=== PATIENT | female | born 1985 | race Caucasian/White ===

== ENCOUNTER 2020-03-16 13:37 | Emergency (ER) | payer BC, SELFPAY ==
[2020-03-16 14:05] VITALS: BP 136/76; PULSE 69; RESP 20; TEMP 36.4; O2SAT 100; BMI 22.1
--- NOTE | 2020-03-16 14:27 | HMH.EDUTC ---
[facility] Disposition Clinical Impression: Exposure to COVID-19 virus Disposition: Home, Self-Care Condition on Discharge: Good Instructions: Preventing the Spread of Coronavirus Discharge Instructions Additional Instructions: Drink plenty of fluids. Take tylenol for pain or fever. Return if you begin to have difficulty breathing. Follow up with your regular doctor. GO TO THE ER FOR ANY WORSENING SYMPTOMS Referrals: PCP,No [Primary Care Provider] - Time of Disposition: 14:28 Medical Decision Making - Medical Records Medical records reviewed: No: I reviewed the patient's medical records. - Steve Inquiry Pt receiving controlled substance: No Vital Signs: 03/16/20 14:19 Temperature 97.5 F L Temperature Source Temporal Artery Scan Pulse Rate [Right Brachial] 69 Respiratory Rate 20 Blood Pressure [Right Arm] 136/76 Blood Pressure Mean [Right Arm] 96 Blood Pressure Source [Right Arm] Automatic Cuff Blood Pressure Position [Right Arm] Sitting 02 Sat by Pulse Oximetry 100 Oxygen Delivery Method Room Air [facility] HPI - General Stated complaint: cough,weak covid exposure Time Seen by Provider: 03/16/20 14:27 Mode of Arrival: Ambulatory Source of Information: Patient Limitations: No Limitations Description of Symptoms (Recalled from Triage Doc. by RN): PATIENT REQUESTING COVID TEST D/T EXPOSURE HEENT Symptoms (Recalled from RN notes): No Resp Symptoms (Recalled from RN notes): No Skin Symptoms (Recalled from RN notes): No MS Symptoms (Recalled from RN notes): No Functional Status (Recalled from RN notes): WNL - History of Present Illness Provider Complaint: She denies any symptoms - Related Data Allergies Allergy/AdvReac Type Severity Reaction Status Date / Time amoxicillin [From Augmentin] Allergy Verified 03/16/20 14:22 clavulanic acid Allergy Verified 03/16/20 14:22 [From Augmentin] - Worker's Comp Is this a Worker's Comp case?: No [facility] History - Hepatitis A Screen Drug use history?: No High risk sexual behaviors?: No History of sexually transmitted infection?: No Currently employed?: No Childcare worker?: No Do you have indoor plumbing?: Yes Do you have electricity?: Yes Attestation statement:: This patient has been screened for Hepatitis A risk factors. I have reviewed the patient's past medical history: Yes - Social History Alcohol Intake: never Occupational Status: other ROS Obtained: Yes All systems reviewed & no additional complaints - Constitutional Constitutional: Reports system reviewed and no additional complaints, except as docu - Eyes Eyes: Reports system reviewed and no additional complaints, except as docu - ENT Ears, Nose, Mouth, and Throat: Reports system reviewed and no additional complaints, except as docu - Cardiovascular Cardiovascular: Reports system reviewed and no additional complaints, except as docu - Respiratory Respiratory: Yes system reviewed and no additional complaints, except as docu - Gastrointestinal Gastrointestingal: Reports: system reviewed and no additional complaints, except as docu Physical Exam - General General appearance: alert, in no apparent distress - Head Head exam: atraumatic, normocephalic, normal inspection - Eye Eye exam: Present: normal appearance, PERRL, EOMI - ENT ENT exam: Present: normal exam, normal oropharynx, mucous membranes moist, TM's normal bilaterally, normal external ear exam - Neck Neck exam: Present: normal inspection, full ROM, trachea midline. Absent: meningismus, lymphadenopathy - Chest Chest inspection: Present: normal inspection, symmetric chest wall rise. Absent: tenderness - Respiratory Respiratory exam: Present: normal lung sounds bilaterally. Absent: respiratory distress - Cardiovascular Cardiovascular exam: Present: regular rate, normal rhythm. Absent: JVD - Abdominal Exam Abdominal exam: Present: soft, normal bowel sounds. Absent: distention,
[2020-03-16 14:40] VITALS: BP 136/76; PULSE 69; RESP 20; TEMP 36.4; O2SAT 100
[2020-03-18 10:52] LABS: Covid-19 Nasal PCR Sendout Lex Not Detected
== END 2020-03-16 14:45 | disposition home or self-care (01) ==
PROVIDERS: Emergency Provider Nurse Practitioner Family
DX: Z20.828 Contact with and (suspected) exposure to other viral communicable diseases (principal); Z88.1 Allergy status to other antibiotic agents
CPT/HCPCS: 99201; U0004

== ENCOUNTER → 2020-08-23 07:17 | Outpatient (CLI) | payer BC, SELFPAY ==
--- NOTE | 2020-08-23 07:22 | XR_ITS ---
PROCEDURE: XR FEMUR LT 2V CLINICAL INDICATION: palpable mass? on left femur. COMPARISON: No exams were available for comparison FINDINGS: There is a broad based area of bony exostosis involving the distal shaft of the femur laterally at the distal diaphyseal region. The base of this measures 8 cm in length and the with is approximately 2 cm. There is some sclerosis along the lateral margin. The thickness of the lateral area of sclerosis is approximately 1 cm. These findings are consistent with a sessile osteo chondroma. No fracture or dislocation. Other findings:None. 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 The cartilaginous cap shows some calcification and measures approximately 1 cm in thickness. There is some minimal irregularity of the lateral aspect of this lesion. Consider MRI of the distal femur without and with contrast for further evaluation to better assess for properties of possible malignant transformation. Dictated by: Manoj Souza MD 08/23/2020 12:02 Manoj Souza MD in [place] 08/23/2020 12:02
== END ==
PROVIDERS: Visit Provider Nurse Practitioner Family
DX: M79.605 Pain in left leg (principal)
CPT/HCPCS: 73552

== ENCOUNTER → 2021-01-08 15:12 | Outpatient (CLI) | payer BC, SELFPAY ==
--- NOTE | 2021-01-08 15:13 | US_ITS ---
PROCEDURE: US TRANSVAGINAL CLINICAL INDICATION: DUB COMPARISON: No exams were available for comparison FINDINGS: There is a retroverted uterus. No uterine mass evident. Endometrium is thickened at 15 mm. UTERUS: 7cm x 5cmx 5cm with a combined endometrial thickness of 15.4mm LEFT OVARY: [id number] with a volume of 28.4ml. There is a septated left ovarian cyst measuring 3.4 x 2 cm. Other small ovarian follicles are present. RIGHT OVARY: [id number] with a volume of 10.9ml. Scattered follicles are noted. No cul-de-sac fluid. There is bilateral ovarian blood flow IMPRESSION: Retroverted uterus with thickened endometrium. 3 cm septated left ovarian cyst. Consider 3 month follow-up to confirm stability or resolution Dictated by: Manoj Souza MD 01/08/2021 18:21 Manoj Souza MD in [place] 01/08/2021 18:21
== END ==
PROVIDERS: Visit Provider Obstetrics & Gynecology
DX: N93.8 Other specified abnormal uterine and vaginal bleeding (principal)
CPT/HCPCS: 76830

== ENCOUNTER → 2021-06-26 15:34 | Outpatient (CLI) | payer BC, SELFPAY ==
[2021-06-26 16:10] LABS: Basophils # 0.1 K/mm3 (0-0.2); Basophils % 0.6 % (0.1-2.0); Eosinophils # 0.3 K/mm3 (0.0-0.4); Eosinophils % 3.4 % (0.1-12.0); Hemoglobin 13.8 g/dL (12.2-16.2); Lymphocytes # 3.4 K/mm3 (0.7-4.5); Lymphocytes % 43.1 % (10-50); Mean Corpuscular HGB Conc 32.1 g/dL (31.8-35.4); Mean Corpuscular Hemoglobin 31.5 pg (27.0-31.2); Mean Corpuscular Volume 98.2 fl (81-99); Mean Platelet Volume 7.7 fl (7.4-10.4); Monocytes # 0.2 K/mm3 (0.1-1.0); Monocytes % 2.9 % (1.7-9.3); Neutrophils # 3.9 K/mm3 (1.8-7.8); Neutrophils % 49.9 % (37.0-80.0); Platelet Count 353 K/mm3 (142-424); Red Blood Count 4.38 M/mm3 (4.20-5.40); Red Cell Distribution Width 14.1 % (11.5-17.5); White Blood Count 7.8 K/mm3 (4.8-10.8)
[2021-06-26 17:33] LABS: Chloride 105 mmol/L (98-107); Sodium 138 mmol/L (136-145)
[2021-06-26 17:34] LABS: Potassium 4.2 mmoL/L (3.5-5.1)
[2021-06-26 17:36] LABS: Alanine Aminotransferase 18 U/L (12-78); Albumin Level 4.5 g/dl (3.5-5.0); Albumin/Globulin Ratio 1.7 (1.1-1.8); Alkaline Phosphatase 50 U/L (38-126); Anion Gap 11.2 mEq/L (5-15); Aspartate Amino Transferase 26 U/L (14-36); Bilirubin,Total 0.4 mg/dl (0.2-1.3); Blood Urea Nitrogen 14 mg/dl (7-17); Carbon Dioxide 26 mmol/L (22.0-30.0); Estimated Glomerular Filt Rate 94 ml/min (>60); GFR (African American) 114 ML/MIN (>60); Globulin 2.6 g/dL (1.3-3.2); Total Protein,Serum 7.1 g/dl (6.3-8.2)
[2021-06-26 17:37] LABS: Calcium 8.7 mg/dl (8.4-10.2); Glucose 86 mg/dl (74-100)
[2021-06-26 17:39] LABS: HCG Qualitative, Serum Negative (Negative)
== END ==
PROVIDERS: Visit Provider Obstetrics & Gynecology
DX: Z01.812 Encounter for preprocedural laboratory examination (principal); Z11.52 Encounter for screening for COVID-19; N92.0 Excessive and frequent menstruation with regular cycle
CPT/HCPCS: 36415; 80053; 84703; 85025; C9803; U0003; U0005

== ENCOUNTER 2022-02-11 16:25 | Emergency (ER) | payer BC, SELFPAY ==
[2022-02-11 17:56] VITALS: BP 129/74; PULSE 78; RESP 18; TEMP 36.6; O2SAT 98; BMI 24.2
--- NOTE | 2022-02-11 18:04 | XR_ITS ---
PROCEDURE INFORMATION: Exam: XR Right Hand Exam date and time: 02/11/2022 6:07 PM Age: 36 years old Clinical indication: Pain; Hand; Right; Additional info: Pain in knuckles x 1 week TECHNIQUE: Imaging protocol: Radiologic exam of the Right hand. Views: 3 or more views. COMPARISON: No relevant prior studies available. FINDINGS: Bones/joints: No visible fracture or dislocation. No significant joint space narrowing or osseous erosions to suggest inflammatory arthritis Soft tissues: Normal. IMPRESSION: 1. No visible fracture or dislocation. 2. No significant joint space narrowing or osseous erosions to suggest inflammatory arthritis
--- NOTE | 2022-02-11 18:05 | EXP.UTC ---
Discharge Plan Disposition Patient Disposition: Home, Self-Care Condition: Good Prescriptions Prescriptions: No Action buprenorphine-naloxone 8-2 mg tablet, sublingual SUBLINGUAL Referrals Follow up/Referrals: Provider,Referral, MD [Primary Care Provider] - See instructions Activity Restrictions/Add. Instructions Additional Instructions/Restrictions: Follow up with your Family Doctor if needed Ice to area if you have any swelling REturn if needed Straight to ER if any life threatening symptoms Clinical Impressions Clinical Impression: Hand injury Stand Alone Forms Stand Alone Forms: Work/School Release Instructions Patient Instructions: Contusion, DI for Contusion Discharge ED Provider: Feli Velasquez [facility] HPI General Stated complaint: need release to go back to work AO 1023 injured R Time Seen by Provider: 02/11/22 18:05 History of Present Illness Provider Complaint: Patient states that she was jumping on trampoline a couple weeks ago and fell States she fell and had swelling and bruising to right hand around her first knuckle area States she was seen in ER in [place] and was told they thought they may have seen fracture and put her off work for a week and told her to follow up with Primary care but she doesnt have one so she came here hoping to get released to go back to work States that swelling is now gone and she can move it and make a fist Related Data Home Medications Medication Instructions Recorded Confirmed buprenorphine 8 mg-naloxone 2 mg ea sublingual 06/11/21 07/16/21 sublingual tablet Allergies Allergy/AdvReac Type Severity Reaction Status Date / Time amoxicillin [From Augmentin] Allergy Verified 07/16/21 15:43 clavulanic acid Allergy Verified 07/16/21 15:43 [From Augmentin] [facility] Social History Smoking Status: Current every day smoker alcohol intake: never substance use type: amphetamines, opiates and painkillers current occupational status: employed and other Travel in the last 8 weeks: None ROS Obtained: Yes All systems reviewed & no additional complaints except as documented and Yes Systems reviewed as appropriate & no additional complaints except as documented Constitutional Constitutional: Reports system reviewed and no additional complaints, except as documented and Reports as per HPI Cardiovascular Cardiovascular: Reports system reviewed and no additional complaints, except as documented and Reports as per HPI Respiratory Respiratory: Reports system reviewed and no additional complaints, except as documented and Reports as per HPI Musculoskeletal Musculoskeletal: Reports system reviewed and no additional complaints, except as documented, Reports as per HPI and Reports other (Pain, swelling and bruising in hand 2 weeks ago not swollen and painful) Physical Exam General General appearance: alert and in no apparent distress Respiratory Respiratory exam: Present normal lung sounds bilaterally; Absent respiratory distress or wheezes Cardiovascular Cardiovascular exam: Present regular rate, normal rhythm and normal heart sounds Expanded Upper Extremity Exam Right: Hand L/R back image: 1. reports where injury was no swelling no bruising noted patient moving finger easily States initial injury was 2 weeks ago Neurological Exam Neurological exam: Present alert and oriented X3 Medical Decision Making Steve Inquiry Pt receiving controlled substance: No Steve was queried for this patient: No Orders (Tests/Meds): ORDERS Category Date Time Status Hand XR right minimum 3 views [XR hand RT min 3V] Stat Exams 02/11/22 18:04 Ordered Radiology Data #1: Image(s): Hand Image Reviewed: Yes I have reviewed radiologist's interpretation IMPRESSION: 1. No visible fracture or dislocation. 2. No significant joint space narrowing or osseous erosions to suggest inflammatory arthritis
[2022-02-11 18:51] VITALS: BP 128/71; PULSE 81; RESP 17; TEMP 36.6; O2SAT 98
== END 2022-02-11 18:52 | disposition home or self-care (01) ==
PROVIDERS: Emergency Provider Nurse Practitioner
DX: S69.90XA Unspecified injury of unspecified wrist, hand and finger(s), initial encounter (principal); Y93.44 Activity, trampolining
CPT/HCPCS: 73130; 99212; G0463

== ENCOUNTER 2025-02-10 09:26 | Outpatient (CLI) | payer BC, SELFPAY ==
--- NOTE | 2025-02-10 09:31 | XR_ITS ---
FINAL REPORT TECHNIQUE: 5 views cervical spine CLINICAL HISTORY: PAIN COMPARISON: None FINDINGS: AP, lateral, oblique and odontoid views of the cervical spine were obtained. There is no prior exam for comparison. There is reversal of the normal cervical lordosis. There is no acute fracture or malalignment. Vertebral body height is preserved. Mild degenerative disc disease is present, most pronounced at the C3-4 level. The precervical soft tissues are normal. IMPRESSION: Mild degenerative changes present, most pronounced at the C3-4 level, without acute osseous abnormality. Reviewed, Interpreted and Dictated by Soledad Bianchi MD Transcribed by Shantell Miles Authenticated and [facility]
--- NOTE | 2025-02-10 09:31 | XR_ITS ---
FINAL REPORT CLINICAL HISTORY: PAIN COMPARISON: None FINDINGS: 3 views of the left shoulder were obtained. There is no fracture or dislocation. There is mild acromioclavicular degenerative change. Soft tissues are unremarkable. IMPRESSION: Mild degenerative change, with no acute osseous abnormality of the left shoulder. Reviewed, Interpreted and Dictated by Soledad Bianchi MD Transcribed by Shantell Miles Authenticated and [facility]
--- NOTE | 2025-02-10 09:31 | XR_ITS ---
FINAL REPORT CLINICAL HISTORY: PAIN COMPARISON: None FINDINGS: 3 views of the right shoulder were obtained. There is no fracture or dislocation. There is mild acromioclavicular degenerative change present. Soft tissues are unremarkable. IMPRESSION: Mild acromioclavicular degenerative change, with no acute osseous abnormality of the right shoulder. Reviewed, Interpreted and Dictated by Soledad Bianchi MD Transcribed by Shantell Miles Authenticated and [facility]
--- OUTSIDE RECORDS SUMMARY | 2025-02-10 09:37 | XMS_ITS | Clinical Summary ---
Author Organization Healthcare Address [address] [place] [address] Care Team Providers Care Train System Operator Name Role Phone King Delgado MD Primary Care Provider [phone] Allergies Active Allergy Reactions Criticality Noted Date Comments Amoxicillin-Pot Clavulanate Rash Low 08/08/19 22 Medications buprenorphine-n aloxone (Suboxone) 8-2 MG SL tablet 1 (one) time each day. 08/01/2021 Active ergocalciferol (ergocalciferol ) 1.25 MG (15126 UT) capsule Take 1 capsule (50,000 Units total) by mouth 2 (two) times a week. 8 capsule 3 08/09/2021 Active Active Problems Problem Noted Date Diagnosed Date Menorrhagia with regular cycle 08/10/2021 Resolved Problems Problem Noted Date Diagnosed Date Resolved Date Dysmenorrhea 08/10/2021 12/26/2024 Family History Medical History Relation Name Comments Stroke Brother 1 No Known Problems Brother 2 No Known Problems Daughter Diabetes Father Hypertension, benign Father Stroke Father Diabetes Mother Hypertension, benign Mother Cervical cancer Mother's Sister 1 Breast cancer Mother's Sister 2 Heart disease Paternal Grandmother No Known Problems Son Relation Name Status Comments Brother 1 Brother 2 Alive Daughter Alive Father Maternal Grandfather Maternal Grandmother Mother Mother's Sister 1 Mother's Sister 2 Paternal Grandfather Paternal Grandmother Son Alive Social History Tobacco Use Types Packs/Day Years Used Date Smoking Tobacco: Every Day Cigarettes 1 20 Smokeless Tobacco: Current Tobacco Cessation:Ready to Q uit: No; Counseling Given: No Comments:Vape Alcohol Use Standard Drinks/Week Comments Not Currently 0 (1 standard drink = 0.6 oz pur e alcohol) Comments No Sex and Gender Information Value Date Recorded Sex Assigned at Not on file Legal Sex Female 9:05 PM EDT Gender Identity Not on file Sexual Orientation Not on file Last Filed Vital Signs Vital Sign Reading Time Taken Comments Blood Pressure 147/91 08/17/2021 2:01 PM EDT Pulse 84 08/07/2021 9:34 AM EDT Temperature - - Respiratory Rate - - Oxygen Saturation - - Inhaled Oxygen Concentration - - Weight 68.1 kg (150 lb 2.1 oz) 08/17/2021 2:01 P M EDT Height 175.3 cm (5' 9 ) 08/07/2021 9:34 AM EDT Body Mass Index 22.17 08/07/2021 9:34 AM EDT Plan of Treatment Health Maintenance Due Date Last Done Comments [facility]-Depression Screening 1983 [facility]-Infant/Child/Adol SDOH Screenings 1983 [facility]-Varicella Vaccines (1 of 2 - 13+ 2-dose series) 12/28/1996 [facility]- SDOH Screenings 12/28/2001 [facility]-Adult SDOH Screenings 12/28/2001 [facility]-Hepatitis B Vaccines (1 of 3 - 19+ 3-dose series) 12/28/2002 HPV Vaccines (1 - 3-dose SCDM series) 12/28/2010 [facility]-HPV/Cotest 12/28/2013 [facility]-Cervical Cancer Screening 06/20/2024 [facility]-Pap Smear 06/20/2024 06/20/2021 [id number] Vaccine (2 - 2024- season) 2024 09/28/2020 [facility]-Influenza Vaccine (#1) 2024 01/12/2019 [facility]-DTaP,Tdap,and Td Vaccines (2 - Td or Tdap) 07/23/2028 07/23/2018, 11/28/2005 [facility]-Zoster Vaccines (1 of 2) 12/28/2033 [facility]-HIB Vaccines Aged Out No longer e ligible based on patient's age to complete this topic [facility]-Hepatitis A Vaccines Aged Out No longer eligible based on patient's age to complete this topic [facility]-IPV Vaccines Aged Out No longer e ligible based on patient's age to complete this topic [facility]-Pneumococcal Vaccine: Pediatrics (0 to 5 Years) and At-Risk Patients (6 to 49 Years) Aged Out No longer eligible b ased on patient's age to complete this topic [facility]-Rotavirus Vaccines Aged Out No lo nger eligible based on patient's age to complete this topic Procedures Procedure Name Priority Date/Time Associated Diagnosis Comments PAP TEST - CYTOLOGY Routine 06/20/2021 12:00 AM EDT from Last 3 Months or Most Recently Relevant to Health Maintenance Results * Pap Test (06/20/2021 12:00 AM EDT) Swab Vaginal and cervical cytologic material / Unknown [facility] Provider LAB CYTOLOGY ORDERABLES Sabina bray Result [facility] [address] [place] [phone] from Last 3 Months or Most Recently Relevant to Health Maintenance Insurance [employer] [facility] Care Teams Train System Operator Relationship Specialty Start Date End Date King Delgado MD [address] [place], [place] [id number] [facility] - General 08/18/20
== END 2025-02-10 23:59 | disposition home or self-care (01) ==
LOC: RAD 09:27
PROVIDERS: PCP Family Medicine; Visit Provider Nurse Practitioner Family
DX: M19.012 Primary osteoarthritis, left shoulder (principal); M19.011 Primary osteoarthritis, right shoulder; M47.812 Spondylosis without myelopathy or radiculopathy, cervical region
CPT/HCPCS: 72050; 73030

== ENCOUNTER 2025-03-01 08:40 | Outpatient (RCR) | payer BC, SELFPAY | END 2025-03-01 23:59 | disposition home or self-care (01) | LOC: PT 08:40 | PROVIDERS: PCP Family Medicine; Visit Provider Nurse Practitioner Family | DX: S49.90XA Unspecified injury of shoulder and upper arm, unspecified arm, initial encounter (principal); M19.90 Unspecified osteoarthritis, unspecified site | CPT/HCPCS: 97161 ==

== ENCOUNTER 2025-03-29 08:00 | Outpatient (RCR) | payer BC, SELFPAY | END 2025-03-29 23:59 | disposition home or self-care (01) | LOC: PT 08:00 | PROVIDERS: PCP Family Medicine; Visit Provider Nurse Practitioner Family | DX: S49.90XA Unspecified injury of shoulder and upper arm, unspecified arm, initial encounter (principal); M19.90 Unspecified osteoarthritis, unspecified site | CPT/HCPCS: 97014; 97110; 97530; G0283 ==